=== PATIENT | female | born 1985 | race Caucasian/White ===

== ENCOUNTER → 2018-10-14 17:31 | Outpatient (CLI) | payer OTHER, SELFPAY ==
[2018-10-21 09:58] LABS: HPV APTIMA, High Risk Negative (Negative); HPV Reflexed? NOT INDICATED
== END ==
PROVIDERS: Visit Provider Obstetrics & Gynecology
DX: Z12.4 Encounter for screening for malignant neoplasm of cervix (principal)
CPT/HCPCS: 87624; 88175; G0145

== ENCOUNTER → 2022-01-31 | Outpatient (CLI) | payer OTHER, SELFPAY ==
[2022-02-10 17:25] LABS: HPV APTIMA, High Risk Negative (Negative)
== END | disposition home or self-care (01) ==
LOC: LABSPEC 16:53
PROVIDERS: Visit Provider Student in an Organized Health Care Education/Training Program
DX: Z01.419 Encounter for gynecological examination (general) (routine) without abnormal findings (principal)
CPT/HCPCS: 87624; 88175; G0145